=== PATIENT | male | born 1995 | race Caucasian/White ===

== ENCOUNTER 2024-03-02 10:16 | Emergency (ER) | payer OTHER, SELFPAY ==
--- NOTE | ~2024-03-02 | US_ITS ---
EXAMINATION: US scrotum doppler DATE: 03/02/2024 11:41 INDICATION: Left testicular swelling. TECHNIQUE: Grayscale and Doppler ultrasound images of the testes were obtained. COMPARISON: None. FINDINGS: The right testis measures 5.5 x 2.7 x 3.4 cm. The left testis measures 5.1 x 3.0 x 3.5 cm. There is normal vascular flow to both testes. The right epididymis is normal with normal vascular antoni w. The left epididymis demonstrates a 1.6 cm cyst. There is a left-sided varicocele. No hydrocele. IMPRESSION: 1. 1.6 cm benign cyst in left epididymis. 2. Left-sided varicocele. Reviewed, dictated and finalized at location A.
[2024-03-02 10:31] VITALS: BP 111/55; PULSE 90; RESP 18; TEMP 36.6; O2SAT 100
--- NOTE | 2024-03-02 11:55 | ED.GENADULT ---
HPI - General Adult General Chief complaint: Urogenital-Male Stated complaint: L testicle swollen Time Seen by Provider: 03/02/24 10:54 History of Present Illness HPI narrative: 28-year-old male presented to the emergency department for evaluation for testicular swelling on the left. Related Data Allergies Allergy/AdvReac Type Severity Reaction Status Date / Time No Known Allergies Allergy Unverified 08/14/13 11:41 Review of Systems Review of Systems: All systems reviewed & are unremarkable except as noted in HPI and below Course Course Emergency Course: APPEARANCE: Well appearing, no pain, no distress, well-nourished. HEAD: normocephalic, atraumatic. NOSE: Normal no drainage MUSCULOSKELETAL: Moves all extremities. Strength/ROM intact, No edema, No calf tenderness. NEURO: Alert. Cranial nerves II through XII intact. Good gait. Good coordination SKIN: Warm, dry. Normal Color Vital Signs Vital signs: Vital Signs Temperature 98 F 03/02/24 10:31 Pulse Rate 90 03/02/24 10:31 Respiratory Rate 18 03/02/24 10:31 Blood Pressure 111/55 L 03/02/24 10:31 Pulse Oximetry 100 03/02/24 10:31 Oxygen Delivery Room Air 03/02/24 10:31 Temperature 98 F 03/02/24 10:31 Pulse Rate 72 03/02/24 12:08 Respiratory Rate 18 03/02/24 12:08 Blood Pressure 130/62 03/02/24 12:08 Pulse Oximetry 100 03/02/24 12:08 Oxygen Delivery Room Air 03/02/24 10:31 Medical Decision Making [facility] Narrative Medical decision making narrative: 28-year-old male presenting to the ED for evaluation for left testicular swelling. Ultrasound wall was negative for torsion but did show a left-sided varicocele and cyst of the epididymis. No evidence of underlying infection. Vital Signs Vital Signs: Vital Signs Temperature 98 F 03/02/24 10:31 Pulse Rate 90 03/02/24 10:31 Respiratory Rate 18 03/02/24 10:31 Blood Pressure 111/55 L 03/02/24 10:31 Pulse Oximetry 100 03/02/24 10:31 Oxygen Delivery Room Air 03/02/24 10:31 Temperature 98 F 03/02/24 10:31 Pulse Rate 72 03/02/24 12:08 Respiratory Rate 18 03/02/24 12:08 Blood Pressure 130/62 03/02/24 12:08 Pulse Oximetry 100 03/02/24 12:08 Oxygen Delivery Room Air 03/02/24 10:31 Imaging Data Radiologist's impression: Impressions Scrotum Ultrasound 03/02/24 11:43 IMPRESSION: 1. 1.6 cm benign cyst in left epididymis. 2. Left-sided varicocele. Discharge Plan Discharge Clinical Impression: Cyst of epididymis, Left varicocele Patient Disposition: Home, Self-Care Condition: Stable Instructions: Antibiotic Form, Varicocele (ED), Scrotal Pain (ED) Additional Instructions: Choose undergarments that provide adequate support. Tylenol and ibuprofen for pain control. Have close follow-up with Urology. Follow-up/Referrals: Jamel Cervantes MD [Physician] - UNKNOWN,DOCTOR [Primary Care Provider] -
[2024-03-02 12:08] VITALS: BP 130/62; PULSE 72; RESP 18; O2SAT 100
== END 2024-03-02 12:11 | disposition home or self-care (01) ==
PROVIDERS: Emergency Provider Emergency Medicine
DX: N50.3 Cyst of epididymis (principal); I86.1 Scrotal varices
CPT/HCPCS: 76870; 93976; 99284